=== PATIENT | female | born 1960 | race Caucasian/White ===

== ENCOUNTER 2017-01-30 12:21 | Emergency (ER) | payer BC ==
[~2017-01-30] VITALS: Ht 170.2 cm; Wt 114.6 kg
[2017-01-30 13:03] LABS: HEMATOCRIT 43.6 % (36.0-46.0); MCH 29.8 PG (29.0-34.0); MCHC 32.6 G/DL (30.0-36.0); MCV 91.4 FL (83-99); MEAN PLAT.VOLUME 10.5 uM^3 (9.5-12.4); PLATELET COUNT 251 K/uL (156-360); RBC DIS.WIDTH-CV 12.6 % (11.8-14.6); RBC DIS.WIDTH-SD 42.5 % (39-53); RED BLOOD COUNT 4.77 M/uL (3.80-5.20)
[2017-01-30 13:17] LABS: CHLORIDE 103 mEq/L (99-109); POTASSIUM 3.6 mEq/L (3.7-5.4); SODIUM 139 mEq/L (136-147)
[2017-01-30 13:19] LABS: GLUCOSE 144 mg/dL (70-99)
[2017-01-30 13:20] LABS: ANION GAP 13 MEQ/L (2-14)
[2017-01-30 13:23] LABS: GFR ESTIMATE (CALCULATED) > 59 mL/min/
[2017-01-30 13:24] LABS: TROP-I INTERPRETATION NEGATIVE; TROPONIN-I < 0.01 ng/mL (0.0-0.30); UREA NITROGEN (BUN) 12 mg/dL (9-23)
[2017-01-30 16:33] LABS: TROP-I INTERPRETATION NEGATIVE; TROPONIN-I < 0.01 ng/mL (0.0-0.30)
[2017-01-30] MEDS ORDERED: ATARAX,VISTARIL25 MG PO (17:11)
[2017-01-30 17:17] VITALS: BP 163/86
== END 2017-01-30 17:17 | disposition home or self-care (01) ==
LOC: EME 12:21
PROVIDERS: Physician Assistant
DX: R00.2 Palpitations (principal); F41.9 Anxiety disorder, unspecified; I10 Essential (primary) hypertension; Z82.49 Family history of ischemic heart disease and other diseases of the circulatory system
CPT/HCPCS: 71020; 80048 91; 84484; 85027; 93005; 99281; 99284; Q0177